=== PATIENT | female | born 1960 | race Hispanic/Latino ===

== ENCOUNTER 2017-01-17 18:59 | Observation (INO) | payer OTHER ==
[2017-01-17] MEDS ORDERED: Clopidogrel Bisulfate 75 MG TAB ONE (19:30)
--- NOTE | 2017-01-17 20:04 | RAD ---
AP VIEW OF THE CHEST: 01/17/17 INDICATION: 56-year-old female with intermittent episodes of lightheadedness that started around 2 p.m. today. T he patient is also having chest pain. COMPARISON: Prior exam dated 12/03/16. FINDINGS: Heart size and pulmonary vasculature are within normal limits. There is mild subsegmental atelectasi s involving both lung bases. No air space consolidation is noted. No pleural effusion is evident. No acute osseous abnormality is evident. IMPRESSION: 1. Mild amount of subsegmental atelectasis may be related to a depth of inspiration. No air spa ce opacity is noted to suggest pneumonia. 2. No additional abnormality demonstrated. POS: [facility]
[2017-01-17 20:21] LABS: #Basophils 0.1 thou/uL (0.0-0.2); #Eosinphils 0.4 thou/uL (0.0-0.7); #Lymphocytes 3.6 thou/uL (1.20-3.40); #Monocytes 0.6 thou/uL (0.11-0.59); %Eosinophils 3.7 % (0.0-10.0); %Monocytes 6.1 % (0.0-10.0); Hematocrit 42.9 % (36.0-47.0); Mean Platelet Volume 8.4 fL (7.4-10.4); Red Blood Cell (RBC) Count 4.75 mill/uL (4.20-5.40); White Blood Cell (WBC) Count 9.6 thou/uL (4.8-10.8)
[2017-01-17 20:24] LABS: Bilirubin Negative (Negative); Blood, Urine Negative (Negative); Glucose, Urine (Dipstick) >=1000 mg/dL (Negative); Ketone, Urine Negative (Negative); Nitrite Negative (Negative); Protein, Urine (Dipstick) Negative (Neg-Trace)
[2017-01-17 20:46] LABS: Troponin I Less than 0.010 ng/mL (< 0.028)
[2017-01-17 20:47] LABS: ALT (SGPT) 48 U/L (8-55); AST (SGOT) 38 U/L (5-34); Alkaline Phosphatase 118 U/L (40-150); Anion Gap 17 mmol/L (10-20); BUN (Urea Nitrogen) 17 mg/dL (9.8-20.1); Bilirubin, Total 0.3 mg/dL (0.2-1.2); CK (CPK) 70 U/L (29-168); Calc. Creatinine Clearance 0 mL/min (70-130); Calcium 10.1 mg/dL (7.8-10.44); Carbon Dioxide 23 mmol/L (22-29); Chloride 101 mmol/L (98-107); Estimated GFR-MDRD 62; Globulin 3.5 g/dL (2.4-3.5); Lipase 35 U/L (8-78); Protein, Total 7.6 g/dL (6.0-8.3)
--- NOTE | 2017-01-17 22:12 | PDOC.EVN ---
Event Note - Event Note Event Note: [id number] h&p dictated 1. Dizziness 2. Chest pain 3. H/O hpl 4. H/O DM Type 2 plan: see orders
[2017-01-17] MEDS ORDERED: Acetaminophen 325 MG TAB PO PRN (22:30)
[2017-01-17] MEDS ORDERED: Ondansetron HCl/PF 4 MG/2 ML Vial IVP PRN (22:30)
[2017-01-17] MEDS ORDERED: HYDROcodone/Acetaminophen 5/325 mg Tablet PO PRN (22:30)
[2017-01-17] MEDS ORDERED: Sodium Chloride 0.9% 1,000 ML IV SCH (22:30)
[2017-01-17] MEDS ORDERED: HYDROcodone/Acetaminophen 10/325 mg Tablet PO PRN (22:33)
[2017-01-17] MEDS ORDERED: HumaLOG 300 UNITS/3 ML VIAL SC PRN ×2 (22:36)
[2017-01-17] MEDS ORDERED: Dextrose 5% in Water 1,000 ML IV PRN (22:36)
[2017-01-17] MEDS ORDERED: Dextrose 50% Abboject 50 ML SYRINGE SLOW IVP PRN (22:36)
[2017-01-17 23:31] VITALS: BMI 39.7
[2017-01-17] MEDS ORDERED: Atorvastatin Calcium 40 MG TAB PO SCH (23:45)
[2017-01-17] MEDS ORDERED: Zolpidem Tartrate 5 MG TAB PO SCH (23:45)
[2017-01-18 02:16] LABS: Troponin I Less than 0.010 ng/mL (< 0.028)
[2017-01-18 04:58] LABS: #Basophils 0.1 thou/uL (0.0-0.2); #Eosinphils 0.4 thou/uL (0.0-0.7); #Lymphocytes 4.1 thou/uL (1.20-3.40); #Monocytes 0.5 thou/uL (0.11-0.59); #Neutrophils 3.4 thou/uL (1.40-6.50); %Basophils 1.3 % (0.0-1.0); %Eosinophils 4.8 % (0.0-10.0); %Lymphocytes 48.6 % (21.0-51.0); %Monocytes 5.3 % (0.0-10.0); Hematocrit 41.3 % (36.0-47.0); Mean Platelet Volume 8.4 fL (7.4-10.4); Red Blood Cell (RBC) Count 4.57 mill/uL (4.20-5.40); White Blood Cell (WBC) Count 8.5 thou/uL (4.8-10.8)
[2017-01-18 05:09] LABS: Anion Gap 15 mmol/L (10-20); BUN (Urea Nitrogen) 14 mg/dL (9.8-20.1); Calc. Creatinine Clearance 122 mL/min (70-130); Calcium 9.5 mg/dL (7.8-10.44); Carbon Dioxide 23 mmol/L (22-29); Chloride 103 mmol/L (98-107); Estimated GFR-MDRD 76
[2017-01-18 05:14] LABS: Troponin I Less than 0.010 ng/mL (< 0.028)
--- NOTE | 2017-01-18 07:16 | HP ---
DATE OF ADMISSION: 01/17/2017 CHIEF COMPLAINT: Dizziness. HISTORY OF PRESENT ILLNESS: Patient is a 56-year-old female with past medical history of coronary artery disease; hypertension; diabetes mellitus, type 2; chronic kidney disease; obesity; hyperlipidemia; chronic pain syndrome, now came to the hospital because of dizziness. Patient states that she is having dizziness for the past few weeks. Dizziness as if she is going to pass out. Denies passing out. Denies any headache. Denies any nausea. Denies any vomiting. Denies any palpitations. Complains of intermittent chest pain also. Patient had a cardiac catheterization done on 08/17/2016. At that time, patient was diagnosed with having some coronary artery disease, but patient did not need any stents at that time. Patient also had a negative stress test on . Patient now complains of intermittent chest pain. Chest pain is like sharp kind of pain, intermittent, and no aggravating factors, no relieving factors. Denies any radiation. Denies any fever. Denies any chills. PAST MEDICAL HISTORY: As per HPI. PAST SURGICAL HISTORY: Cardiac catheterization. SOCIAL HISTORY: Denies smoking, denies alcohol, denies any drugs. FAMILY HISTORY: Positive for heart problems. REVIEW OF SYSTEMS: Constitutional: Denies any fever, denies any chills. Eyes : No vision problems. Ears: Denies any hearing loss. Neck: Denies any neck pain. Cardiovascular System: Positive for chest pain. Respiratory System: Denies any dyspnea. Denies any cough. Denies any sputum production. Denies any lightheadedness. Psychiatric: Denies any depression. Denies any anxiety. Musculoskeletal: Denies any joint deformities. Integumentary: Denies any rash. Cranial Nerve System: Positive for dizziness. Denies any syncope. All other review of systems are reviewed and are negative. PHYSICAL EXAMINATION: CONSTITUTIONAL/VITAL SIGNS: At the time of H and P performed, blood pressure is 130/80, afebrile, respiration rate 18, pulse oximetry 97% on room air. GENERAL APPEARANCE: Patient appears comfortable. HEENT: Pupils are equal and round. Anterior nares normal. Ears, normal. Teeth, intact. Tongue is moist. NECK: Supple, no JVD. CARDIOVASCULAR SYSTEM: S1 and S2 present. Regular rate and rhythm. No murmurs , no rubs, no gallops. RESPIRATORY SYSTEM: No wheezing, no rhonchi. Breath sounds present bilaterally. GASTROINTESTINAL: Abdomen is soft, nontender, no guarding, no organomegaly, no masses felt. MUSCULOSKELETAL: No edema. PSYCHIATRIC: Mood is appropriate at this time. GENITOURINARY: No suprapubic tenderness. No angle tenderness. INTEGUMENT: No obvious rashes seen. LABORATORY DATA AND IMAGING: At the time of H and P performed, white count 9.6 , hemoglobin 14.1, platelet count is 198. BMP shows sodium 137, potassium 4.3, chloride 101, BUN of 17, creatinine 0.93, glucose is 321, troponin less than 0.010. EKG, no acute ST changes and normal sinus rhythm. Albumin is 4.1. ASSESSMENT AND PLAN: The patient is a 56-year-old female. 1. Dizziness, plan to consult Neurology to evaluate the patient. Plan to check cardiac enzymes and 2D echo. We will place patient on telemetry. We will do carotid ultrasound. 2. History of diabetes mellitus, type 2. Monitor blood sugars. We will do insulin sliding scale. 3. History of hyperlipidemia. Continue statin. 4. History of coronary artery disease. Continue home medications. The case was discussed in detail with the patient. Patient is a FULL CODE. MTDD
[2017-01-18] MEDS ORDERED: Insulin NPH/Reg Insulin Hm 300 UNITS/3 ML VIAL SC SCH (07:30)
[2017-01-18 07:48] VITALS: BP 109/51; TEMP 98.8
--- NOTE | 2017-01-18 07:57 | DIS ---
DATE OF ADMISSION: 01/17/2017 DATE OF DISCHARGE: 01/18/2017 TRANSFER OF CARE PRIMARY CARE PROVIDER: Myra Gutiérrez M.D. DISPOSITION: Discharged home. FINAL DIAGNOSES: Atypical chest pain, lightheadedness, coronary artery disease, diabetes mellitus t ype 2, and hypertension. DISCHARGE MEDICATIONS: Metformin 1000 mg daily, Imdur 30 mg a day, NPH insulin 70/30 at 25 units grove bcutaneously twice a day, valsartan 80 mg a day, Ambien 10 mg at bedtime, aspirin 81 mg a day, Lipit or 40 mg a day, Plavix 75 mg a day, nitroglycerin 0.4 mg sublingual q.5 minutes p.r.n. ALLERGIES: NAPROXEN and NICK INHIBITORS. PENDING AT THE TIME OF DISCHARGE: Nothing. CODE STATUS: FULL. HOSPITAL COURSE: Patient with multiple medical problems presented with atypical chest pain, fleetin g, left-sided, some lightheadedness was seen in the emergency room, referred to the [email or web address] t Service. Blood pressure has ranged in the 100-122 systolic range. She has no orthostatic drop. Her blood sugars ranged in the 200+ or minus. Cardiac enzymes normal x3. Comp metabolic profile ot herwise normal except for AST of 38. CBC is normal x2. When I interviewed her this morning, she wa s feeling fine. No more pain, no dizziness. Cardiovascular exam was normal. After a brief discuss ion, she was happy with being discharged. She is being discharged home with follow up by PCP in 1 w [place]. CONSULTATIONS: None. PROCEDURES: None.
[2017-01-18] MEDS ORDERED: Clopidogrel Bisulfate 75 MG TAB PO SCH (09:00)
[2017-01-18] MEDS ORDERED: Non-Formulary Item 1 EACH (Dexlansoprazole [Dexilant] 60 MG) PO SCH (09:00)
[2017-01-18] MEDS ORDERED: Famotidine 20 MG TAB PO SCH (09:00)
[2017-01-18] MEDS ORDERED: metFORMIN HCl XR 500 MG TAB PO SCH (09:00)
[2017-01-18] MEDS ORDERED: Heparin 5,000 UNITS/ML VIAL SC SCH (09:00)
[2017-01-18] MEDS ORDERED: Valsartan 80 MG TAB PO SCH (09:00)
[2017-01-18] MEDS ORDERED: Atorvastatin Calcium 40 MG TAB PO SCH (21:00)
[2017-01-18] MEDS ORDERED: Zolpidem Tartrate 5 MG TAB PO SCH (21:00)
== END 2017-01-18 08:21 | disposition home or self-care (01) ==
LOC: ERS 18:59 → 2SW 22:58
PROVIDERS: ADMIT Internal Medicine; ATTEND Internal Medicine
DX: R07.89 Other chest pain (principal); R42 Dizziness and giddiness; E11.22 Type 2 diabetes mellitus with diabetic chronic kidney disease; I12.9 Hypertensive chronic kidney disease with stage 1 through stage 4 chronic kidney disease, or unspecified chronic kidney disease; N18.2 Chronic kidney disease, stage 2 (mild); E78.5 Hyperlipidemia, unspecified; I25.10 Atherosclerotic heart disease of native coronary artery without angina pectoris; E66.9 Obesity, unspecified; Z68.39 Body mass index [BMI] 39.0-39.9, adult; Z98.61 Coronary angioplasty status; Z88.6 Allergy status to analgesic agent; Z88.8 Allergy status to other drugs, medicaments and biological substances
CPT/HCPCS: 36415; 36416; 71010; 80048; 80053; 81003; 82553; 83690; 84484; 85025; 93005; 96360; 96361; G0378

== ENCOUNTER 2017-01-23 09:19 | Outpatient (CLI) | payer OTHER ==
--- NOTE | 2017-01-23 15:49 | MRI ---
NONCONTRAST MRI LUMBAR SPINE: DATE: 01/23/17. HISTORY: Bilateral hip as well as low back pain. No known injury. COMPARISON: 04/18/08. FINDINGS: Conus medullaris is normal in appearance and, again terminates at the T12-L1 level. There is a rounded focus of increased T2 with corresponding decreased T1 weighted signal intensity s een in the T12 vertebral body measuring 11 mm. This is larger in size compared to a study in 2008. This is likely related to an atypical hemangioma given the appearance on T2 weighted images, but gi faith interval increase in size and atypical appearance, a bone scan with SPECT imaging would be helpf ul for further evaluation. A few additional tiny increased T1 and T2 weighted signal intensity foci are seen in the lumbar vertebral bodies which may represent either focal areas of fat or small lalitha ngiomas. T12-L1 level: There is no disk bulge or disk herniation. Central spinal canal and neural foramen a re patent. L1-2 level: There is no disk bulge or disk herniation. Central spinal canal and neural foramen are patent. L2-3 level: There is a mild broad-based disk bulge which results in only very slight effacement asp ect of the thecal sac. There is only mild encroachment on each neural foramen. Findings are not si gnificantly changed from the prior exam. L3-4 level: There is slight height loss of intervertebral disk. There is a mild broad-based disk-o steophyte complex with facet hypertrophic changes. There is mild generalized narrowing of the centr al spinal canal with mild bilateral neural foraminal narrowing. This is similar to the prior study. L4-5 level: There is a mild broad-based disk-osteophyte complex with prominent facet hypertrophic c hanges and mild ligamentous thickening. There is mild narrowing of the central spinal canal. There is mild bilateral neural foraminal narrowing but to a greater degree than at the L3-4 level. There has been no interval change from the prior study. L5-S1 level: There is minimal disk bulge. There are prominent facet hypertrophic changes at this l evel. The right neural foramen is patent, but there is mild left-sided neural foraminal narrowing. There is no significant narrowing of the central spinal canal. Retroperitoneal structures have a normal MRI appearance. IMPRESSION: 1. Increased T2 with corresponding decreased T1 weighted signal intensity lesion in the T12 vertebr al body. 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 However, this is larger in size compare d to a study in 2008 where this measured 6 mm in maximal dimensions. Further evaluation with bone s can including SPECT imaging is recommended for further evaluation. 2. Mild degenerative changes in the lumbar spine not significantly progressed from the prior study in 2007. POS: [facility]
== END 2017-01-23 09:20 | disposition home or self-care (01) ==
LOC: MRI 09:19
PROVIDERS: ATTEND Family Medicine
DX: M54.5 Low back pain (principal); M47.896 Other spondylosis, lumbar region
CPT/HCPCS: 72148

== ENCOUNTER 2017-02-12 19:17 | Emergency (ER) | payer OTHER | END 2017-02-12 20:11 | disposition home or self-care (01) | LOC: SCSER 19:17 | DX: J98.01 Acute bronchospasm (principal); J31.0 Chronic rhinitis; E11.9 Type 2 diabetes mellitus without complications; E78.5 Hyperlipidemia, unspecified; E66.9 Obesity, unspecified; M10.9 Gout, unspecified; F41.9 Anxiety disorder, unspecified; Z79.4 Long term (current) use of insulin; Z79.899 Other long term (current) drug therapy; Z87.891 Personal history of nicotine dependence | CPT/HCPCS: 93005 ==

== ENCOUNTER 2017-07-23 20:23 | Emergency (ER) | payer BC, MEDICAID | END 2017-07-23 20:43 | disposition home or self-care (01) | LOC: SCSER 20:23 | DX: R05 Cough (principal); I20.9 Angina pectoris, unspecified; E11.9 Type 2 diabetes mellitus without complications; E78.5 Hyperlipidemia, unspecified; E66.9 Obesity, unspecified; M10.9 Gout, unspecified; F41.9 Anxiety disorder, unspecified; Z87.891 Personal history of nicotine dependence | CPT/HCPCS: 99283 ==

== ENCOUNTER 2017-08-13 12:43 | Emergency (ER) | payer MEDICAID ==
[2017-08-13 13:15] LABS: #Basophils 0.1 thou/uL (0.0-0.2); #Eosinphils 0.4 thou/uL (0.0-0.7); #Lymphocytes 3.8 thou/uL (1.20-3.40); #Monocytes 0.6 thou/uL (0.11-0.59); #Neutrophils 5.1 thou/uL (1.40-6.50); %Basophils 1.5 % (0.0-1.0); %Eosinophils 3.7 % (0.0-10.0); %Lymphocytes 38.3 % (21.0-51.0); %Monocytes 5.6 % (0.0-10.0); %Neutrophils 50.9 % (42.0-75.0); Hemoglobin 14.3 g/dL (12.0-16.0); Mean Corpuscular HGB CONC 35.1 g/dL (32.0-36.0); Mean Corpuscular Hemoglobin 29.9 pg (27.0-31.0); Mean Corpuscular Volume 85.2 fl (81.0-99.0); Mean Platelet Volume 10.5 fL (7.4-10.4); Platelet Count 194 thou/uL (130-400); RBC Distribution Width 11.5 % (11.5-14.5)
[2017-08-13 13:30] LABS: CKMB 0.8 ng/mL (0-6.6); Troponin I Less than 0.010 ng/mL (< 0.028)
[2017-08-13 13:43] LABS: Anion Gap 16 mmol/L (10-20); BUN (Urea Nitrogen) 15 mg/dL (9.8-20.1); Calc. Creatinine Clearance 0 mL/min (70-130); Calcium 9.7 mg/dL (7.8-10.44); Carbon Dioxide 22 mmol/L (22-29); Chloride 104 mmol/L (98-107); Estimated GFR-MDRD 69; Glucose 166 mg/dL (70-105); Potassium 4.2 mmol/L (3.5-5.1); Sodium 138 mmol/L (136-145)
--- NOTE | 2017-08-13 13:43 | RAD ---
CHEST 1 VIEW: Date: 08/13/17 HISTORY: Fall. Pain. COMPARISON: 01/17/17. FINDINGS: Atherosclerosis of aorta. Enlarged cardiac silhouette. Pulmonary vessels and hilum are normal. Costop hrenic angles are clear. No consolidation or mass. No pneumothorax or osseous abnormalities. IMPRESSION: 1. No acute cardiopulmonary process. 2. Atherosclerosis. POS: [facility]
== END 2017-08-13 14:02 | disposition home or self-care (01) ==
LOC: SCSER 12:43
DX: S46.911A Strain of unspecified muscle, fascia and tendon at shoulder and upper arm level, right arm, initial encounter (principal); E78.5 Hyperlipidemia, unspecified; E11.9 Type 2 diabetes mellitus without complications; M10.9 Gout, unspecified; F41.9 Anxiety disorder, unspecified; Z79.899 Other long term (current) drug therapy; Z79.84 Long term (current) use of oral hypoglycemic drugs; Z79.4 Long term (current) use of insulin; W19.XXXA Unspecified fall, initial encounter
CPT/HCPCS: 71045; 80048; 82553; 84484; 85025

== ENCOUNTER 2017-09-25 13:56 | Emergency (ER) | payer MEDICAID, OTHER ==
[2017-09-25 14:31] LABS: #Basophils 0.1 thou/uL (0.0-0.2); #Eosinphils 0.3 thou/uL (0.0-0.7); #Lymphocytes 2.7 thou/uL (1.20-3.40); #Monocytes 0.5 thou/uL (0.11-0.59); #Neutrophils 4.6 thou/uL (1.40-6.50); %Basophils 1.1 % (0.0-1.0); %Lymphocytes 33.3 % (21.0-51.0); %Monocytes 5.6 % (0.0-10.0); Hemoglobin 13.7 g/dL (12.0-16.0); Mean Corpuscular HGB CONC 33.4 g/dL (32.0-36.0); Mean Corpuscular Hemoglobin 29.8 pg (27.0-31.0); Platelet Count 202 thou/uL (130-400); RBC Distribution Width 11.6 % (11.5-14.5); Red Blood Cell (RBC) Count 4.62 mill/uL (4.20-5.40); White Blood Cell (WBC) Count 8.1 thou/uL (4.8-10.8)
[2017-09-25 14:31] LABS: Bilirubin Negative (Negative); Blood, Urine Negative (Negative); Glucose, Urine (Dipstick) 250 mg/dL (Negative); Leukocyte Negative (Negative); Nitrite Negative (Negative); Protein, Urine (Dipstick) Negative (Neg-Trace); Urobilinogen 0.2 mg/dL (0.2-1.0)
[2017-09-25 14:35] LABS: Clarity Clear (Clear)
[2017-09-25 14:36] LABS: Specific Gravity, Urine 1.026 (1.002-1.036)
[2017-09-25 14:51] LABS: ALT (SGPT) 22 U/L (8-55); AST (SGOT) 20 U/L (5-34); Albumin 4.2 g/dL (3.5-5.0); Alkaline Phosphatase 91 U/L (40-150); Anion Gap 10 mmol/L (10-20); BUN (Urea Nitrogen) 15 mg/dL (9.8-20.1); Bilirubin, Total 0.4 mg/dL (0.2-1.2); Calc. Creatinine Clearance 0 mL/min (70-130); Calcium 9.8 mg/dL (7.8-10.44); Carbon Dioxide 29 mmol/L (22-29); Chloride 102 mmol/L (98-107); Estimated GFR-MDRD 59; Globulin 2.9 g/dL (2.4-3.5); Glucose 297 mg/dL (70-105); Lipase 31 U/L (8-78); Protein, Total 7.1 g/dL (6.0-8.3); Sodium 137 mmol/L (136-145)
[2017-09-25] MEDS ORDERED: Ondansetron ODT 4 MG TAB ONE (15:23)
[2017-09-25] MEDS ORDERED: Morphine 10 MG/ML VIAL ONE (15:58)
--- NOTE | 2017-09-25 16:30 | CT ---
ABDOMEN CT WITH CONTRAST PELVIC CT WITH CONTRAST 09/25/17 HISTORY: Right lower quadrant pain. COMPARISON: 07/28/13. TECHNIQUE: Abdomen CT is performed with IV contrast. Enteric contrast was not administered. Coronal reformatted images are submitted for interpretation. FINDINGS: ABDOMEN CT: Dependent atelectatic changes. Heart size is normal. No pericardial effusion. The descending thoracic aorta and abdominal aorta have a normal caliber. No periaortic fat stranding. Gallbladder is surgically absent. Intra and extrahepatic portal vein is patent. Liver, spleen, pancreas, and adrenal glands have appropriate enhancement. Symmetric enhancement of the kidneys. Bilaterally, no obstructive uropathy. No mesenteric mass, lymphadenopathy, free air or free fluid. Limited evaluation of the alimentary canal due to lack of oral contrast. Gastric mucosa, duodenum and multiple normal caliber small bowel loops are noted. Ileocecal junction is normal. Normal caliber ap pendix. There is diverticulosis involving the left hemicolon. No definite evidence of diverticulitis. There is stranding of the pericolonic fat at the level of the distal descending colon/proximal sigmo id colon which may be artifactual due to beam attenuation created by a left hip prosthesis. PELVIC CT: Limited evaluation due to beam attenuation artifact. No pelvic mass, lymphadenopathy, free air or luc e fluid. No lytic or blastic lesions in the osseous structures. IMPRESSION: 1. Normal caliber appendix. 2. Diverticulosis without obvious evidence of diverticulitis. There is probable artifactual julien ges involving the fat adjacent to the distal descending colon/proximal sigmoid colon. If there is con cern for diverticulitis, consider general surgical consultation. POS: [facility]
[2017-09-25] MEDS ORDERED: ISOVUE-370 76%-LOCM 1 ML ONE (18:23)
== END 2017-09-25 17:55 | disposition home or self-care (01) ==
LOC: ERS 13:56
DX: R10.31 Right lower quadrant pain (principal); R19.7 Diarrhea, unspecified; R11.2 Nausea with vomiting, unspecified; E11.9 Type 2 diabetes mellitus without complications; E78.5 Hyperlipidemia, unspecified; E66.9 Obesity, unspecified; F41.9 Anxiety disorder, unspecified; Z79.899 Other long term (current) drug therapy
CPT/HCPCS: 36415; 74177; 80053; 81003; 83690; 85025; 96361; 96374; J2270; Q0162

== ENCOUNTER 2018-03-15 13:33 | Emergency (ER) | payer OTHER ==
[2018-03-15 14:38] LABS: #Basophils 0.1 thou/uL (0.0-0.2); #Eosinphils 0.3 thou/uL (0.0-0.7); #Lymphocytes 3.6 thou/uL (1.20-3.40); #Monocytes 0.6 thou/uL (0.11-0.59); #Neutrophils 4.8 thou/uL (1.40-6.50); %Basophils 1.6 % (0.0-1.0); %Eosinophils 2.7 % (0.0-10.0); %Lymphocytes 38.8 % (21.0-51.0); %Monocytes 5.9 % (0.0-10.0); Hemoglobin 15.5 g/dL (12.0-16.0); Mean Corpuscular HGB CONC 32.2 g/dL (32.0-36.0); Mean Corpuscular Hemoglobin 27.6 pg (27.0-31.0); Mean Corpuscular Volume 85.7 fL (78.0-98.0); Mean Platelet Volume 10.1 fL (7.4-10.4); Platelet Count 177 thou/uL (130-400); RBC Distribution Width 11.7 % (11.5-14.5); Red Blood Cell (RBC) Count 5.61 mill/uL (4.20-5.40); White Blood Cell (WBC) Count 9.3 thou/uL (4.8-10.8)
[2018-03-15 14:52] LABS: ALT (SGPT) 31 U/L (8-55); AST (SGOT) 30 U/L (5-34); Albumin 4.6 g/dL (3.5-5.0); Alkaline Phosphatase 112 U/L (40-150); Anion Gap 18 mmol/L (10-20); BUN (Urea Nitrogen) 14 mg/dL (9.8-20.1); Bilirubin, Total 0.6 mg/dL (0.2-1.2); Calc. Creatinine Clearance 0 mL/min (70-130); Carbon Dioxide 21 mmol/L (22-29); Chloride 103 mmol/L (98-107); Estimated GFR-MDRD 68; Globulin 3.6 g/dL (2.4-3.5); Glucose 305 mg/dL (70-105); Protein, Total 8.2 g/dL (6.0-8.3); Sodium 138 mmol/L (136-145)
[2018-03-15] MEDS ORDERED: Insulin Regular 300 UNITS/3 ML VIAL ONE (15:33)
[2018-03-15] MEDS ORDERED: Potassium Chloride 20 MEQ TAB ONE (15:38)
== END 2018-03-15 16:08 | disposition home or self-care (01) ==
LOC: SCSER 13:33
DX: G56.02 Carpal tunnel syndrome, left upper limb (principal); E11.65 Type 2 diabetes mellitus with hyperglycemia; E11.9 Type 2 diabetes mellitus without complications; E78.5 Hyperlipidemia, unspecified; E66.9 Obesity, unspecified; M10.9 Gout, unspecified; F41.9 Anxiety disorder, unspecified; Z87.891 Personal history of nicotine dependence; Z79.899 Other long term (current) drug therapy; Z79.84 Long term (current) use of oral hypoglycemic drugs; Z79.82 Long term (current) use of aspirin
CPT/HCPCS: 36416; 80053; 82010; 85025; 96361; 96374; J1815

== ENCOUNTER 2018-03-28 21:41 | Emergency (ER) | payer OTHER ==
[2018-03-28 22:37] LABS: Bilirubin Negative (Negative); Blood, Urine Negative (Negative); Clarity Clear (Clear); Glucose, Urine (Dipstick) >=1000 mg/dL (Negative); Leukocyte Negative (Negative); Nitrite Negative (Negative); Protein, Urine (Dipstick) Negative (Neg-Trace); Specific Gravity, Urine 1.015 (1.005-1.030); Urobilinogen 0.2 mg/dL (0.2-1.0)
[2018-03-30 23:01] LABS: Chlamydia by PCR Not Detected (NotDetected); GC by PCR Not Detected (NotDetected)
== END 2018-03-28 22:57 | disposition home or self-care (01) ==
LOC: SCSER 21:41
DX: L73.9 Follicular disorder, unspecified (principal); I20.9 Angina pectoris, unspecified; E78.5 Hyperlipidemia, unspecified; M10.9 Gout, unspecified; E66.9 Obesity, unspecified; F41.9 Anxiety disorder, unspecified; Z79.899 Other long term (current) drug therapy; Z79.82 Long term (current) use of aspirin
CPT/HCPCS: 81003; 87480; 87491; 87510; 87591; 87660; 99283

== ENCOUNTER 2018-05-10 10:08 | Outpatient (CLI) | payer OTHER | END 2018-05-10 10:09 | disposition home or self-care (01) | LOC: BICMAMMO 10:08 | PROVIDERS: ATTEND Family Medicine | DX: Z12.31 Encounter for screening mammogram for malignant neoplasm of breast (principal); R92.1 Mammographic calcification found on diagnostic imaging of breast | CPT/HCPCS: 77067 ==

== ENCOUNTER 2018-05-10 20:21 | Emergency (ER) | payer OTHER ==
[2018-05-10] MEDS ORDERED: HYDROcodone/Acetaminophen 5/325 mg Tablet ONE (21:24)
== END 2018-05-10 21:33 | disposition home or self-care (01) ==
LOC: SCSER 20:21
DX: M94.0 Chondrocostal junction syndrome [Tietze] (principal); M10.9 Gout, unspecified; E78.5 Hyperlipidemia, unspecified; E66.9 Obesity, unspecified; I20.9 Angina pectoris, unspecified; F41.9 Anxiety disorder, unspecified; Z79.4 Long term (current) use of insulin; Z79.82 Long term (current) use of aspirin; Z79.899 Other long term (current) drug therapy
CPT/HCPCS: 99284

== ENCOUNTER 2018-10-11 15:55 | Emergency (ER) | payer OTHER ==
--- NOTE | 2018-10-11 16:16 | RAD ---
EXAM: CHEST ONE VIEW HISTORY: Intermittent shortness of breath and chest pain with left arm pain for one week. COMPARISON: 08/13/2017 FINDINGS: The cardiac silhouette and pulmonary vasculature is within normal limits. Most inferior aspect left l ateral costophrenic angle was not imaged. There is minimal atelectasis present at the left lung base. The lungs otherwise appear clear.. The osseous structures are intact. Vascular calcifications a re again seen in the thoracic aorta. IMPRESSION: No acute cardiopulmonary process.
[2018-10-11 16:27] LABS: #Basophils 0.1 thou/uL (0.0-0.2); #Eosinphils 0.4 thou/uL (0.0-0.7); #Lymphocytes 4.9 thou/uL (1.20-3.40); #Monocytes 0.6 thou/uL (0.11-0.59); #Neutrophils 4.5 thou/uL (1.40-6.50); %Basophils 0.9 % (0.0-1.0); %Eosinophils 3.6 % (0.0-10.0); %Lymphocytes 47.1 % (21.0-51.0); %Monocytes 5.6 % (0.0-10.0); %Neutrophils 42.8 % (42.0-75.0); Hemoglobin 13.6 g/dL (12.0-16.0); Mean Corpuscular HGB CONC 33.7 g/dL (32.0-36.0); Mean Corpuscular Hemoglobin 30.3 pg (27.0-31.0); Mean Corpuscular Volume 89.9 fL (78.0-98.0); Platelet Count 215 thou/uL (130-400); RBC Distribution Width 11.8 % (11.5-14.5); Red Blood Cell (RBC) Count 4.49 mill/uL (4.20-5.40); White Blood Cell (WBC) Count 10.4 thou/uL (4.8-10.8)
[2018-10-11 16:52] LABS: ALT (SGPT) 44 U/L (8-55); AST (SGOT) 32 U/L (5-34); Albumin 4.7 g/dL (3.5-5.0); Alkaline Phosphatase 86 U/L (40-150); Anion Gap 16 mmol/L (10-20); BUN (Urea Nitrogen) 13 mg/dL (9.8-20.1); Bilirubin, Total 0.3 mg/dL (0.2-1.2); CK (CPK) 95 U/L (29-168); Calc. Creatinine Clearance 0 mL/min (70-130); Calcium 10.3 mg/dL (7.8-10.44); Carbon Dioxide 25 mmol/L (22-29); Chloride 103 mmol/L (98-107); Estimated GFR-MDRD 73; Globulin 2.6 g/dL (2.4-3.5); Glucose 85 mg/dL (70-105); Potassium 3.7 mmol/L (3.5-5.1); Protein, Total 7.3 g/dL (6.0-8.3); Sodium 140 mmol/L (136-145)
--- NOTE | 2018-10-16 11:54 | EKG ---
Test Reason : Blood Pressure : / mmHG Vent. Rate : 073 BPM Atrial Rate : 073 BPM P-R Int : 148 ms QRS Dur : 070 ms QT Int : 378 ms P-R-T Axes : 054 016 046 degrees QTc Int : 416 ms Normal sinus rhythm Normal ECG Confirmed by CLARISSA CHOPRA, LORIN Hancock ([id number]), staff editor CHEYENNE CARPIO ([id number]) on 10/16/2018 11:54:42 AM Referred By: Confirmed By:LORIN ROMO MD
== END 2018-10-11 17:55 | disposition home or self-care (01) ==
LOC: ERS 15:55
DX: F41.9 Anxiety disorder, unspecified (principal); I20.9 Angina pectoris, unspecified; I10 Essential (primary) hypertension; E78.5 Hyperlipidemia, unspecified; E11.9 Type 2 diabetes mellitus without complications; E66.9 Obesity, unspecified; M10.9 Gout, unspecified; Z79.899 Other long term (current) drug therapy; Z79.84 Long term (current) use of oral hypoglycemic drugs
CPT/HCPCS: 36415; 71045; 80053; 82550; 83880; 84484; 85025; 93005

== ENCOUNTER 2018-11-03 06:41 | Outpatient (CLI) | payer OTHER ==
--- NOTE | 2018-11-03 07:41 | ULT ---
Renal sonogram HISTORY: Renal failure. FINDINGS: Right kidney measures up to 10.6 cm. No focal mass or hydronephrosis. Urinary bladder has n ormal appearance. Left kidney is 10.4 cm. A 0.7 cm exophytic cyst projects laterally from the cortex of the kidney. No hydronephrosis. IMPRESSION: Small left renal cyst. No evidence of urinary tract obstruction.
== END 2018-11-03 06:42 | disposition home or self-care (01) ==
LOC: BICULT 06:41
PROVIDERS: ATTEND Internal Medicine Nephrology
DX: N18.1 Chronic kidney disease, stage 1 (principal); N28.1 Cyst of kidney, acquired
CPT/HCPCS: 76770

== ENCOUNTER 2019-11-20 14:38 | Emergency (ER) | payer MEDICAID, OTHER ==
[2019-11-20 15:19] LABS: Bacteria/HPF None Seen HPF (None Seen); Bilirubin Negative (Negative); Blood, Urine Negative (Negative); Clarity Clear (Clear); Glucose, Urine (Dipstick) Greater than 1000 mg/dL (Negative); Ketone, Urine Negative (Negative); Leukocyte Negative Leu/uL (Negative); Mucous/LPF Rare LPF (<2+); Nitrite Negative (Negative); Protein, Urine (Dipstick) 30 mg/dL (Neg-Trace); RBC/HPF 0-3 HPF (0-3); Specific Gravity, Urine 1.032 (1.002-1.036); Squamous Epithelial 0-3 HPF (0-3); Urobilinogen Normal mg/dL (Less than 2); WBC/HPF 0-3 HPF (0-3); pH, Urine 5.5 (5.0-9.0)
[2019-11-20] MEDS ORDERED: Acetaminophen 500 MG TAB ONE (15:45)
--- NOTE | 2019-11-20 16:32 | RAD ---
RIGHT FOOT THREE VIEWS: History: Lateral foot pain. FINDINGS: There is a Carlos type fracture at the base of the fifth metatarsal. No other significant findings. IMPRESSION: Carlos fracture at base of the fifth metatarsal. POS: [facility]
--- NOTE | 2019-11-20 17:08 | RAD ---
RIGHT ANKLE THREE VIEWS: History: Ankle injury. FINDINGS: There are no signs of any fracture of the ankle. There is a fracture involving the base of the fifth metatarsal. IMPRESSION: Carlos type fracture of the fifth metatarsal. POS: [facility]
== END 2019-11-20 17:16 | disposition home or self-care (01) ==
LOC: ERS 14:38
DX: S92.351A Displaced fracture of fifth metatarsal bone, right foot, initial encounter for closed fracture (principal); E11.9 Type 2 diabetes mellitus without complications; E78.5 Hyperlipidemia, unspecified; E66.9 Obesity, unspecified; M10.9 Gout, unspecified; F41.9 Anxiety disorder, unspecified; F32.9 Major depressive disorder, single episode, unspecified; Z87.891 Personal history of nicotine dependence; Z79.899 Other long term (current) drug therapy; Z79.84 Long term (current) use of oral hypoglycemic drugs; Z79.82 Long term (current) use of aspirin; X50.1XXA Overexertion from prolonged static or awkward postures, initial encounter
CPT/HCPCS: 81003; 81015

== ENCOUNTER 2021-04-23 14:56 | Emergency (ER) | payer OTHER ==
[~2021-04-23 14:56] MED LIST: Iopamidol-370 76% 500 ML 1 ML ONE
[2021-04-23 15:30] LABS: #Basophils 0.1 thou/uL (0.0-0.2); #Eosinphils 0.2 thou/uL (0.0-0.7); #Lymphocytes 3.5 thou/uL (1.20-3.40); #Monocytes 0.6 thou/uL (0.11-0.59); #Neutrophils 3.9 thou/uL (1.40-6.50); %Basophils 0.7 % (0.0-1.0); %Eosinophils 2.3 % (0.0-10.0); %Lymphocytes 42.5 % (21.0-51.0); %Monocytes 6.7 % (0.0-10.0); %Neutrophils 47.7 % (42.0-75.0); Hemoglobin 12.8 g/dL (12.0-16.0); Mean Corpuscular HGB CONC 32.9 g/dL (32.0-36.0); Mean Corpuscular Hemoglobin 28.7 pg (27.0-31.0); Mean Corpuscular Volume 87.2 fL (78.0-98.0); Mean Platelet Volume 7.9 fL (7.4-10.4); Platelet Count 207 thou/uL (130-400); RBC Distribution Width 12.2 % (11.5-14.5); Red Blood Cell (RBC) Count 4.47 mill/uL (4.20-5.40); White Blood Cell (WBC) Count 8.2 thou/uL (4.8-10.8)
[2021-04-23 15:48] LABS: ALT (SGPT) 35 U/L (8-55); AST (SGOT) 33 U/L (5-34); Albumin 4.2 g/dL (3.4-4.8); Alkaline Phosphatase 88 U/L (40-110); Anion Gap 14 mmol/L (10-20); BUN (Urea Nitrogen) 12 mg/dL (9.8-20.1); Bilirubin, Total 0.4 mg/dL (0.2-1.2); Calc. Creatinine Clearance 0 mL/min (70-130); Calcium 10.3 mg/dL (7.8-10.44); Carbon Dioxide 26 mmol/L (23-31); Chloride 101 mmol/L (98-107); Globulin 3.3 g/dL (2.4-3.5); Glucose 143 mg/dL (80-115); Lipase 42 U/L (8-78); Protein, Total 7.5 g/dL (5.8-8.1); Sodium 137 mmol/L (136-145)
[2021-04-23 16:39] LABS: Bilirubin Negative (Negative); Blood, Urine Negative (Negative); Clarity Clear (Clear); Glucose, Urine (Dipstick) Normal (Negative); Ketone, Urine Negative (Negative); Leukocyte Negative Leu/uL (Negative); Nitrite Negative (Negative); Protein, Urine (Dipstick) Negative (Neg-Trace); Specific Gravity, Urine 1.004 (1.002-1.036); Urobilinogen Normal mg/dL (Less than 2)
[2021-04-23] MEDS ORDERED: Morphine 4 MG/ML VIAL ONE (16:40)
[2021-04-23] MEDS ORDERED: Ondansetron PF 4 MG/2 ML Vial ONE (16:40)
== END 2021-04-23 19:18 | disposition home or self-care (01) ==
LOC: ERS 14:56
DX: R10.11 Right upper quadrant pain (principal); E11.9 Type 2 diabetes mellitus without complications; E78.5 Hyperlipidemia, unspecified; E78.00 Pure hypercholesterolemia, unspecified; E66.9 Obesity, unspecified; Z87.891 Personal history of nicotine dependence; Z79.82 Long term (current) use of aspirin; Z79.84 Long term (current) use of oral hypoglycemic drugs; Z79.899 Other long term (current) drug therapy
CPT/HCPCS: 36415; 74177; 80053; 81003; 83690; 85025; 96374; 96375; J2270; J2405; Q9967

== ENCOUNTER 2021-04-28 07:43 | Emergency (ER) | payer OTHER ==
[2021-04-28] MEDS ORDERED: diphenhydrAMINE 50 MG/ML VIAL ONE (08:19)
[2021-04-28] MEDS ORDERED: Lidocaine Viscous Sol 2% 15 ml UD Cup ONE (08:19)
[2021-04-28] MEDS ORDERED: Metoclopramide HCl 10 MG/2 ML VIAL ONE (08:19)
[2021-04-28] MEDS ORDERED: Mag-Al 1200 mg/1200 mg/30 ML UDCUP ONE (08:19)
[2021-04-28 08:29] LABS: #Basophils 0.1 thou/uL (0.0-0.2); #Eosinphils 0.1 thou/uL (0.0-0.7); #Lymphocytes 2.7 thou/uL (1.20-3.40); #Monocytes 0.5 thou/uL (0.11-0.59); #Neutrophils 3.7 thou/uL (1.40-6.50); %Basophils 0.7 % (0.0-1.0); %Eosinophils 1.9 % (0.0-10.0); %Monocytes 7.4 % (0.0-10.0); %Neutrophils 52.1 % (42.0-75.0); Mean Corpuscular HGB CONC 33.2 g/dL (32.0-36.0); Mean Corpuscular Volume 87.5 fL (78.0-98.0); Platelet Count 205 thou/uL (130-400); RBC Distribution Width 12.1 % (11.5-14.5); Red Blood Cell (RBC) Count 4.47 mill/uL (4.20-5.40); White Blood Cell (WBC) Count 7.1 thou/uL (4.8-10.8)
[2021-04-28 08:33] LABS: Bacteria/HPF None Seen HPF (None Seen); Bilirubin Negative (Negative); Blood, Urine Negative (Negative); Clarity Clear (Clear); Glucose, Urine (Dipstick) Normal (Negative); Ketone, Urine Negative (Negative); Leukocyte 75 Leu/uL (Negative); Nitrite Negative (Negative); Protein, Urine (Dipstick) Negative (Neg-Trace); RBC/HPF 0-3 HPF (0-3); Specific Gravity, Urine 1.014 (1.002-1.036); Squamous Epithelial 0-3 HPF (0-3); Urobilinogen Normal mg/dL (Less than 2); WBC/HPF 0-3 HPF (0-3)
[2021-04-28 08:44] LABS: ALT (SGPT) 32 U/L (8-55); AST (SGOT) 27 U/L (5-34); Albumin 3.9 g/dL (3.4-4.8); Alkaline Phosphatase 91 U/L (40-110); Anion Gap 13 mmol/L (10-20); BUN (Urea Nitrogen) 9 mg/dL (9.8-20.1); Bilirubin, Total 0.3 mg/dL (0.2-1.2); Calc. Creatinine Clearance 0 mL/min (70-130); Calcium 9.5 mg/dL (7.8-10.44); Carbon Dioxide 27 mmol/L (23-31); Chloride 102 mmol/L (98-107); Globulin 3.2 g/dL (2.4-3.5); Glucose 159 mg/dL (80-115); Lipase 65 U/L (8-78); Potassium 3.9 mmol/L (3.5-5.1); Protein, Total 7.1 g/dL (5.8-8.1); Sodium 138 mmol/L (136-145)
== END 2021-04-28 09:15 | disposition home or self-care (01) ==
LOC: ERS 07:43
DX: R10.11 Right upper quadrant pain (principal); E11.43 Type 2 diabetes mellitus with diabetic autonomic (poly)neuropathy; E78.5 Hyperlipidemia, unspecified; E78.00 Pure hypercholesterolemia, unspecified; E66.9 Obesity, unspecified; M10.9 Gout, unspecified; Z87.891 Personal history of nicotine dependence; Z79.82 Long term (current) use of aspirin; Z79.84 Long term (current) use of oral hypoglycemic drugs; Z79.899 Other long term (current) drug therapy
CPT/HCPCS: 80053; 81003; 81015; 83690; 85025; 96372; 99284; J1200; J2765

== ENCOUNTER 2023-10-27 18:12 | Emergency (ER) | payer OTHER, SELFPAY ==
[~2023-10-27 18:12] MED LIST changes: -Iopamidol-370 76% 500 ML 1 ML ONE; +Iopamidol-370 76% 500 ML MDV (1 ML CHARGE) ONE
[2023-10-27 20:36] LABS: #Basophils 0.06 10x3/uL (0.0-0.2); %Basophils 0.8 % (0.0-1.0); %Eosinophils 2.1 % (0.0-10.0); %Lymphocytes 43.7 % (21.0-51.0); %Monocytes 7.2 % (0.0-10.0); %Neutrophils 45.7 % (42.0-75.0); Hematocrit 44.3 % (36.0-47.0); Hemoglobin 14.9 g/dL (12.0-16.0); Mean Corpuscular HGB CONC 33.6 g/dL (32.0-36.0); Mean Corpuscular Hemoglobin 28.9 pg (27.0-31.0); Mean Corpuscular Volume 85.9 fL (78.0-98.0); Mean Platelet Volume 10.5 fL (7.4-10.4); Platelet Count 195 10x3/uL (130-400); RBC Distribution Width 12.5 % (11.5-14.5); Red Blood Cell (RBC) Count 5.16 mill/uL (4.20-5.40)
[2023-10-27 20:58] LABS: ALT (SGPT) 40 U/L (8-55); AST (SGOT) 38 U/L (5-34); Alkaline Phosphatase 132 U/L (40-110); Anion Gap 14 mmol/L (10-20); BUN (Urea Nitrogen) 15 mg/dL (9.8-20.1); Bilirubin, Total 0.5 mg/dL (0.2-1.2); Calc. Creatinine Clearance 0 mL/min (70-130); Calcium 9.9 mg/dL (7.8-10.44); Carbon Dioxide 24 mmol/L (23-31); Chloride 104 mmol/L (98-107); Estimated GFR 82; Globulin 3.8 g/dL (2.4-3.5); Glucose 198 mg/dL (80-115); Lipase 38 U/L (8-78); Potassium 3.8 mmol/L (3.5-5.1); Protein, Total 7.8 g/dL (5.8-8.1); Sodium 138 mmol/L (136-145)
[2023-10-27 21:33] LABS: Bacteria/HPF None Seen HPF (None Seen); Bilirubin Negative (Negative); Blood, Urine Negative (Negative); CAUTI Indications for Culture Pelvic or flank pain; Clarity Clear (Clear); Glucose, Urine (Dipstick) 100 mg/dL (Negative); Ketone, Urine Negative (Negative); Leukocyte 250 Leu/uL (Negative); Nitrite Negative (Negative); Protein, Urine (Dipstick) Negative (Neg-Trace); RBC/HPF 0-3 HPF (0-3); Squamous Epithelial 0-3 HPF (0-3); Urobilinogen Normal mg/dL (Less than 2); WBC/HPF 0-3 HPF (0-3); pH, Urine 6.5 (5.0-9.0)
[2023-10-27 21:34] LABS: Specific Gravity, Urine 1.055 (1.002-1.036)
[2023-10-27 21:35] LABS: Urine Culture Reflex No No
[2023-10-27 22:06] LABS: Troponin I Less than 0.010 ng/mL (< 0.028)
== END 2023-10-27 22:51 | disposition home or self-care (01) ==
LOC: ERS 18:12
DX: R10.13 Epigastric pain (principal); R10.11 Right upper quadrant pain; E11.9 Type 2 diabetes mellitus without complications; Z87.891 Personal history of nicotine dependence
CPT/HCPCS: 36415; 74177; 80053; 81001; 83690; 84484; 85025; 93005; Q9967

== ENCOUNTER 2024-11-03 17:24 | Emergency (ER) | payer OTHER ==
[2024-11-03] MEDS ORDERED: Orphenadrine Citrate 60 MG/2 ML VIAL ONE (19:31)
[2024-11-03] MEDS ORDERED: Acetaminophen 500 MG TAB ONE (20:26)
== END 2024-11-03 21:33 | disposition home or self-care (01) ==
LOC: ERS 17:24
DX: S13.4XXA Sprain of ligaments of cervical spine, initial encounter (principal); E11.9 Type 2 diabetes mellitus without complications; Z87.891 Personal history of nicotine dependence; E78.5 Hyperlipidemia, unspecified; V49.60XA Unspecified car occupant injured in collision with unspecified motor vehicles in traffic accident, initial encounter
CPT/HCPCS: 70450; 72125; 73030; J2360; 96372

== ENCOUNTER 2024-12-04 18:49 | Emergency (ER) | payer OTHER ==
[2024-12-04] MEDS ORDERED: HYDROcodone/Acetaminophen 5/325 mg Tablet ONE (20:51)
== END 2024-12-04 21:17 | disposition home or self-care (01) ==
LOC: ERS 18:49
DX: M16.12 Unilateral primary osteoarthritis, left hip (principal); E11.9 Type 2 diabetes mellitus without complications; E66.9 Obesity, unspecified; E78.00 Pure hypercholesterolemia, unspecified; Z79.4 Long term (current) use of insulin; Z55.6 Problems related to health literacy; Z87.891 Personal history of nicotine dependence; Z79.899 Other long term (current) drug therapy; Z79.84 Long term (current) use of oral hypoglycemic drugs
CPT/HCPCS: 99283

== ENCOUNTER 2025-04-11 09:37 | Outpatient (CLI) | payer OTHER ==
[~2025-04-11 09:37] MED LIST changes: +ISOVUE-370 76%-LOCM 500 ML MDV (1 ML CHARGE) ONE; -Iopamidol-370 76% 500 ML MDV (1 ML CHARGE) ONE
[2025-04-11 10:12] LABS: Estimated GFR - POC 81.0
== END 2025-04-11 09:38 | disposition home or self-care (01) ==
LOC: CT 09:37
PROVIDERS: ATTEND Family Medicine
DX: R10.84 Generalized abdominal pain (principal)
CPT/HCPCS: 36415; 74178; 82565